=== PATIENT | female | born 1970 | race Asian ===

== ENCOUNTER 2016-05-15 20:05 | Emergency (ER) | payer OTHER ==
--- NOTE | 2016-05-15 20:29 | ER Document Report ---
ED Medical Screen (RME) - General Stated Complaint: LEFT WRIST PAIN Notes: Left wrist pain after straining to open a jar she felt that straining during the maneuver. I greeted and performed a rapid initial assessment of this patient. Comprehensive ED assessment and evaluation of the patient, analysis of test results and completion of the medical decision making process will be conducted by additional ED providers. TRAVEL OUTSIDE OF THE [place] IN LAST 30 DAYS: No - Related Data Allergies/Adverse Reactions: codeine [Codeine] Allergy (Severe, Verified 08/06/10 11:23) rash Past Medical History - Past Medical History Cardiac Medical History: Denies: Hx Coronary Artery Disease, Hx Heart Attack, Hx Hypertension Pulmonary Medical History: Denies: Hx Asthma, Hx Bronchitis, Hx COPD, Hx Pneumonia Neurological Medical History: Denies: Hx Cerebrovascular Accident, Hx Seizures GI Medical History: Musculoskeltal Medical History: Denies Hx Arthritis Infectious Medical History: Past Surgical History: Reports: Hx Section, Hx Hysterectomy. Denies: Hx Pacemaker - Immunizations Hx Diphtheria, Pertussis, Tetanus Vaccination: Yes Physical Exam - Vital signs Vitals: Temp Resp BP Pulse Ox 98.2 F 18 219/109 H 98 05/15/16 20:14 05/15/16 20:14 05/15/16 20:14 05/15/16 20:14 Course - Vital Signs Vital signs: Temp Pulse Resp BP Pulse Ox 98.2 F 18 219/109 H 98 05/15/16 20:14 05/15/16 20:14 05/15/16 20:14 05/15/16 20:14
[2016-05-15] MEDS ORDERED: IBUPROFEN 800 MG TABLET PO ONE (21:12)
--- NOTE | 2016-05-15 21:36 | ER Document Report ---
HPI - HPI Patient complains to provider of: left wrist pain Pain Level: 2 Context: Patient is a 45-year-old female presents emergency Department complaining of left wrist pain. Patient states that she was twisting open a jar this afternoon when she felt a sharp pain in her left thumb. She denies any other trauma or accidents. Just states that today she was helping her dad around the house that she felt pain in the similar area. She states it is worse with thumb extension versus flexion. Otherwise she is able to make a fist has full range of motion and does not eyes any numbness or tingling in her finger. - REPRODUCTIVE LMP: na Reproductive: DENIES: : - DERM Skin Color: Normal Past Medical History - General Information source: Patient - Social History Smoking Status: Current Every Day Smoker Chew tobacco use (# tins/day): No Frequency of alcohol use: Occasional Drug Abuse: None Family History: Reviewed & Not Pertinent Patient has suicidal ideation: No - Past Medical History Cardiac Medical History: Denies: Hx Coronary Artery Disease, Hx Heart Attack, Hx Hypertension Pulmonary Medical History: Denies: Hx Asthma, Hx Bronchitis, Hx COPD, Hx Pneumonia Neurological Medical History: Denies: Hx Cerebrovascular Accident, Hx Seizures Renal/ Medical History: Denies: Hx Peritoneal Dialysis GI Medical History: Musculoskeltal Medical History: Denies Hx Arthritis Infectious Medical History: Past Surgical History: Reports: Hx Section, Hx Hysterectomy. Denies: Hx Pacemaker - Immunizations Hx Diphtheria, Pertussis, Tetanus Vaccination: Yes Vertical Provider Document - CONSTITUTIONAL Agree With Documented VS: Yes - Repeat BP 178/96mmHg Exam Limitations: No Limitations General Appearance: WD/WN, No Apparent Distress - INFECTION CONTROL TRAVEL OUTSIDE OF THE [place] IN LAST 30 DAYS: No - HEENT HEENT: Atraumatic - RESPIRATORY O2 Sat by Pulse Oximetry: 98 - CARDIOVASCULAR Pulses: Normal: Radial Notes: Capillary refill less than 2 seconds in all upper extremity digits - MUSCULOSKELETAL/EXTREMETIES Musculoskeletal/Extremeties: MAEW, FROM, Tender - Tenderness to palpation at the base of the thumb metacarpal - NEURO Level of Consciousness: Awake, Alert, Appropriate Motor/Sensory: No Motor Deficit, No Sensory Deficit Course - Re-evaluation Re-evalutation: 05/15/16 21:39 Given patient had an injury during a motion of twisting likely has a strain of one of his thumb muscles. Indicated for Motrin and ice. No evidence of fracture on her x-ray. - Vital Signs Vital signs: Temp Pulse Resp BP Pulse Ox 98.2 F 18 219/109 H 98 05/15/16 20:14 05/15/16 20:14 05/15/16 20:14 05/15/16 20:14 - Diagnostic Test Radiology reviewed: Reports reviewed Discharge - Discharge Clinical Impression: Finger strain Condition: Good Disposition: HOME, SELF-CARE Instructions: Use of [id number]-Fyfmnza Ibuprofen ([facility]), Ice & Elevation ([facility]) Forms: Elevated Blood Pressure
[2016-05-15 22:33] VITALS: BP 178/98
== END 2016-05-15 22:31 | disposition home or self-care (01) ==
LOC: ER 20:05
DX: S63.602A Unspecified sprain of left thumb, initial encounter (principal); M25.532 Pain in left wrist; F17.200 Nicotine dependence, unspecified, uncomplicated; X58.XXXA Exposure to other specified factors, initial encounter; Z90.710 Acquired absence of both cervix and uterus
CPT/HCPCS: 99283

== ENCOUNTER 2016-07-18 19:37 | Emergency (ER) | payer OTHER ==
--- NOTE | 2016-07-18 19:51 | ER Document Report ---
ED Medical Screen (RME) - General Stated Complaint: HEADACHE,NAUSEA Notes: patient is a 45 year old female with headache, chills, body aches, nausea with vomiting, diarrhea since tuesday, denies sick contacts. denies any urinary symptoms I have greeted and performed a rapid initial assessment of this patient. A comprehensive ED assessment and evaluation of the patient, analysis of test results and completion of the medical decision making process will be conducted by additional ED providers. TRAVEL OUTSIDE OF THE [place] IN LAST 30 DAYS: No - Related Data Allergies/Adverse Reactions: codeine [Codeine] Allergy (Severe, Verified 08/06/10 11:23) rash Past Medical History - Past Medical History Cardiac Medical History: Denies: Hx Coronary Artery Disease, Hx Heart Attack, Hx Hypertension Pulmonary Medical History: Denies: Hx Asthma, Hx Bronchitis, Hx COPD, Hx Pneumonia Neurological Medical History: Denies: Hx Cerebrovascular Accident, Hx Seizures Renal/ Medical History: Denies: Hx Peritoneal Dialysis GI Medical History: Musculoskeltal Medical History: Denies Hx Arthritis Infectious Medical History: Past Surgical History: Reports: Hx Section, Hx Hysterectomy. Denies: Hx Pacemaker - Immunizations Hx Diphtheria, Pertussis, Tetanus Vaccination: Yes Physical Exam - Vital signs Vitals: Temp Pulse Resp BP Pulse Ox 97.5 F 69 16 180/95 H 96 07/18/16 19:42 07/18/16 19:42 07/18/16 19:42 07/18/16 19:42 07/18/16 19:42 Course - Vital Signs Vital signs: Temp Pulse Resp BP Pulse Ox 97.5 F 69 16 180/95 H 96 07/18/16 19:42 07/18/16 19:42 07/18/16 19:42 07/18/16 19:42 07/18/16 19:42
[2016-07-18] MEDS ORDERED: ONDANSETRON 4 MG TAB.RAPDIS PO ONE (19:54)
[2016-07-18] MEDS ORDERED: ACETAMINOPHEN 325 MG TABLET PO ONE (20:22)
[2016-07-18] MEDS ORDERED: KETOROLAC TROMETHAMINE 60 MG/2 ML SDV IM ONE (21:11)
--- NOTE | 2016-07-18 21:15 | ER Document Report ---
ED Headache - General Chief Complaint: Headache >24 hrs old Stated Complaint: HEADACHE,NAUSEA Notes: 45 yo female c/o headache, bodyaches, chills, n/v/d x 3 days. no fever. no hx/ o HTN but BP elevated today TRAVEL OUTSIDE OF THE [place] IN LAST 30 DAYS: No - HPI Patient complains to provider of: Headache Onset: Other - 3 days Timing: Still present Quality of pain: Achy Pain Level: 5 Associated symptoms: Chills, Nausea/vomiting. denies: Dizzy, Fever, Photophobia , Stiff neck Similar symptoms previously: No Recently seen / treated by doctor: No - Related Data Allergies/Adverse Reactions: codeine [Codeine] Allergy (Severe, Verified 07/18/16 19:52) rash Past Medical History - General Information source: Patient - Social History Smoking Status: Current Every Day Smoker Chew tobacco use (# tins/day): No Frequency of alcohol use: None Drug Abuse: None Lives with: Family Family History: Reviewed & Not Pertinent - Past Medical History Cardiac Medical History: Denies: Hx Coronary Artery Disease, Hx Heart Attack, Hx Hypertension Pulmonary Medical History: Denies: Hx Asthma, Hx Bronchitis, Hx COPD, Hx Pneumonia Neurological Medical History: Denies: Hx Cerebrovascular Accident, Hx Seizures Renal/ Medical History: Denies: Hx Peritoneal Dialysis GI Medical History: Musculoskeltal Medical History: Denies Hx Arthritis Infectious Medical History: Past Surgical History: Reports: Hx Section, Hx Hysterectomy. Denies: Hx Pacemaker - Immunizations Hx Diphtheria, Pertussis, Tetanus Vaccination: Yes Review of Systems - Review of Systems Constitutional: No symptoms reported EENT: No symptoms reported Cardiovascular: No symptoms reported Respiratory: No symptoms reported Gastrointestinal: Diarrhea, Nausea, Vomiting Genitourinary: No symptoms reported Female Genitourinary: No symptoms reported Musculoskeletal: No symptoms reported Skin: No symptoms reported Hematologic/Lymphatic: No symptoms reported Neurological/Psychological: No symptoms reported -: Yes All other systems reviewed and negative Physical Exam - Vital signs Vitals: Temp Pulse Resp BP Pulse Ox 97.5 F 69 16 180/95 H 96 07/18/16 19:42 07/18/16 19:42 07/18/16 19:42 07/18/16 19:42 07/18/16 19:42 Interpretation: Normal - General General appearance: Appears well, Alert - HEENT Head: Normocephalic, Atraumatic Eyes: Normal Conjunctiva: Normal Extraocular movements intact: Yes Pupils: PERRL Tympanic membrane: Normal Sinus: Normal Mucous membranes: Normal, Moist Pharynx: Normal Neck: Normal, Supple. No: Lymphadenopathy, Meningismus - Respiratory Respiratory status: No respiratory distress Chest status: Nontender Breath sounds: Normal Chest palpation: Normal - Cardiovascular Rhythm: Regular Heart sounds: Normal auscultation Murmur: No - Abdominal Inspection: Normal Distension: No distension Bowel sounds: Normal Tenderness: Nontender Organomegaly: No organomegaly - Back Back: Normal, Nontender - Extremities General upper extremity: Normal inspection, Nontender, Normal color, Normal ROM , Normal temperature General lower extremity: Normal inspection, Nontender, Normal color, Normal ROM , Normal temperature, Normal weight bearing. No: Orbin's sign - Neurological Neuro grossly intact: Yes Cognition: Normal Orientation: AAOx4 Lee Coma Scale Eye Opening: Spontaneous Lee Coma Scale Verbal: Oriented Lee Coma Scale Motor: Obeys Commands [place] Coma Scale Total: 15 Speech: Normal Motor strength normal: LUE, RUE, LLE, RLE Sensory: Normal - Psychological Associated symptoms: Normal affect, Normal mood - Skin Skin Temperature: Warm Skin Moisture: Dry Skin Color: Normal Course - Re-evaluation Re-evalutation: 07/18/16 21:14 pt evaluated. meds ordered. will continue to monitor 07/18/16 21:57 no neurologic deficits. 07/18/16 22:23 headache improving. BP improving. pt stable for discharge and follow up with primary care. pt agreeable with plan - Vital Signs Vital signs: Temp Pulse Resp BP Pulse Ox 98.3 F 76 20 168/63 H 100 07/18/16 22:10 07/18/16 22:10 07/18/16 22:10 07/18/16 22:10 07/18/16 22:10 Discharge - Discharge Clinical Impression: Viral syndrome Headache Qualifiers: Headache type: unspecified Headache chronicity pattern: acute headache Intractability: not intractable Qualified Code(s): R51 - Headache HTN (hypertension) Qualifiers: Hypertension type: essential hypertension Qualified Code(s): I10 - Essential ( primary) hypertension Condition: Stable Disposition: HOME, SELF-CARE Instructions: Viral Syndrome ([facility]), Antinausea Medication ([facility]), High Blood Pressure ([facility]) Additional Instructions: Meds as prescribed rest and hydrate follow up with your primary care if symptoms persist return to ER for any worsening your blood pressure was high today keep blood pressure diary please follow up with your primary care for further evaluation and treatment Prescriptions: Ondansetron HCl [Zofran 8 mg Tablet] 8 mg PO Q8HP PRN #10 tablet PRN Reason: Butalbital/Aspirin/Caffeine [Fiorinal 50-325-40 mg Capsule] 1 - 2 cap PO Q4 PRN #20 cap PRN Reason: Forms: Elevated Blood Pressure
[2016-07-18 22:11] VITALS: BP 168/63
[2016-07-18] MEDS ORDERED: HYDROCODONE/ACETAMINOPHEN 5-325 MG 6 TAB/DSPK PO PRN (22:32)
== END 2016-07-18 22:46 | disposition home or self-care (01) ==
LOC: ER 19:37
DX: R51 Headache (principal); B34.9 Viral infection, unspecified; R11.2 Nausea with vomiting, unspecified; I10 Essential (primary) hypertension; R68.83 Chills (without fever); F17.200 Nicotine dependence, unspecified, uncomplicated; Z88.6 Allergy status to analgesic agent
CPT/HCPCS: 99283; 96372; J1885; S0119

== ENCOUNTER 2017-01-20 12:17 | Emergency (ER) | payer OTHER ==
--- NOTE | 2017-01-20 13:20 | ER Document Report ---
HPI - HPI Pain Level: 4 Notes: Patient is a 46-year-old female who presents the ED complaining of right ear pain 2-3 days. Patient states that she did have nasal congestion discharge prior, but that those symptoms have since resolved. She has not used any over- the-counter meds for symptoms. She still eating and drinking without difficulties. The pain does not radiate. She has not noticed any discharge from her ear. Denies any drug allergies to antibiotics or significant past medical history otherwise. Denies any recent swimming. Denies any headache, fever, head injury, neck pain, changes in hearing, dizziness, tinnitus, fullness of ear, URI, sore throat, chest pain, palpitations, syncope, cough, shortness of breath, wheeze, dyspnea, abdominal pain, nausea/vomiting/diarrhea, or rash. - ROS Notes: REVIEW OF SYSTEMS: CONSTITUTIONAL : Denies fever, chills, or sweats. Denies recent illness. EENT: see hpi. No eye complaints. CARDIOVASCULAR: Denies chest pain. Denies palpitations or racing or irregular heart beat. Denies ankle edema. RESPIRATORY: Denies cough, cold, or chest congestion. Denies shortness of breath, difficulty breathing, or wheezing. GASTROINTESTINAL: Denies abdominal pain or distention. Denies nausea, vomiting , or diarrhea. Denies blood in vomitus, stools, or per rectum. Denies black, tarry stools. Denies constipation. GENITOURINARY: Denies difficulty urinating, painful urination, burning, frequency, blood in urine, or discharge. MUSCULOSKELETAL: Denies back or neck pain or stiffness. Denies joint pain or swelling. SKIN: Denies rash, lesions or sores. NEUROLOGICAL: Denies confusion or altered mental status. Denies passing out or loss of consciousness. Denies dizziness or lightheadedness. Denies headache. Denies weakness or paralysis or loss of use of either side. Denies problems with gait or speech. Denies sensory loss, numbness, or tingling. ALL OTHER SYSTEMS REVIEWED AND NEGATIVE. Dictation was performed using [employer] voice recognition software - CARDIOVASCULAR Cardiovascular: DENIES: Chest pain - REPRODUCTIVE Reproductive: DENIES: : - DERM Skin Color: Normal Past Medical History - Social History Smoking Status: Current Every Day Smoker Chew tobacco use (# tins/day): No Frequency of alcohol use: None Drug Abuse: None Family History: Reviewed & Not Pertinent Patient has suicidal ideation: No Patient has homicidal ideation: No - Past Medical History Cardiac Medical History: Denies: Hx Coronary Artery Disease, Hx Heart Attack, Hx Hypertension Pulmonary Medical History: Denies: Hx Asthma, Hx Bronchitis, Hx COPD, Hx Pneumonia Neurological Medical History: Denies: Hx Cerebrovascular Accident, Hx Seizures Renal/ Medical History: Denies: Hx Peritoneal Dialysis GI Medical History: Musculoskeltal Medical History: Denies Hx Arthritis Infectious Medical History: Past Surgical History: Reports: Hx Section, Hx Hysterectomy. Denies: Hx Pacemaker - Immunizations Hx Diphtheria, Pertussis, Tetanus Vaccination: Yes Vertical Provider Document - CONSTITUTIONAL Agree With Documented VS: Yes Notes: PHYSICAL EXAMINATION: GENERAL: Well-appearing, well-nourished and in no acute distress. HEAD: Atraumatic, normocephalic. EYES: Pupils equal round and reactive to light, extraocular movements intact, sclera anicteric, conjunctiva are normal. ENT: EAC clear b/l. + erythema to the rt EAC with tenderness to tragus and EAC. TM's intact b/l without erythema, fluid, or perforation. Nares patent and without discharge. oropharynx clear without exudates. No tonsilar hypertrophy or erythema. Moist mucous membranes. No sinus tenderness. Uvula midline. No palatine shift. No tongue protrusion. No respiratory compromise. NECK: Normal range of motion, supple without lymphadenopathy. No rigidity/ meningismus. LUNGS: Breath sounds clear to auscultation bilaterally and equal. No wheezes rales or rhonchi. HEART: Regular rate and rhythm without murmurs, rubs, gallops. NEUROLOGICAL: Cranial nerves grossly intact. Normal speech, normal gait. Normal sensory, motor exams PSYCH: Normal mood, normal affect. SKIN: Warm, Dry, normal turgor, no rashes or lesions noted. - INFECTION CONTROL TRAVEL OUTSIDE OF THE [place] IN LAST 30 DAYS: No - RESPIRATORY O2 Sat by Pulse Oximetry: 97 Course - Re-evaluation Re-evalutation: 01/20/17 13:17 Patient is an afebrile, well-hydrated, 46-year-old female who presents to the ED with acute right otitis sterna. Vitals are stable. PE otherwise unremarkable. Low suspicion/risk for any mastoiditis, TM rupture, acute glaucoma, temporal arteritis, meningitis, intracranial hemorrhage, ischemic stroke, or fracture at this time. Patient is aware that her condition can change from initial presentation and that she needs to monitor symptoms closely for any acute changes. I will send her home with a prescription for Ciprodex drops to apply as directed. Conservative measures for symptoms. Recheck with her PCM in 1 week. Consider consult with ENT for ongoing/worsening symptoms. Return to the ED with any worsening/concerning symptoms otherwise as reviewed in discharge. Patient is in agreement. - Vital Signs Vital signs: Temp Pulse Resp BP Pulse Ox 98.8 F 95 20 97 01/20/17 12:34 01/20/17 12:34 01/20/17 12:34 01/20/17 12:34 Discharge - Discharge Clinical Impression: Otitis externa Qualifiers: Otitis externa type: unspecified type Chronicity: acute Laterality: right Qualified Code(s): H60.501 - Unspecified acute noninfective otitis externa, right ear Condition: Stable Disposition: HOME, SELF-CARE Instructions: Use of Ear Drops ([facility]), Otitis Externa ([facility]) Additional Instructions: Tylenol/ibuprofen as needed Use drops as directed Avoid use of Q-tips in ear Avoid swimming or submerging underwater Monitor for any worsening symptoms Recheck with your PCM in 1 week Consider consult with ENT for ongoing/worsening symptoms Return to the ED with any worsening symptoms and/or development of fever, headache, tinnitus, dizziness, ear discharge, chest pain, palpitations, syncope , shortness of breath, trouble breathing, abdominal pain, n/v/d, blood in stool/ urine, loss of control of bowel/bladder, or other worsening symptoms that are concerning to you. Prescriptions: Ciprofloxacin HCl/Dexameth [Ciprodex Otic Suspension 7.5 ml Bottle] 4 drop OT BID #1 bottle Referrals: AMAYA HERRERA MD [Primary Care Provider] - Follow up in 1 week
== END 2017-01-20 13:24 | disposition home or self-care (01) ==
LOC: ER 12:17
DX: H60.501 Unspecified acute noninfective otitis externa, right ear (principal); F17.200 Nicotine dependence, unspecified, uncomplicated
CPT/HCPCS: 99282

== ENCOUNTER 2017-05-28 14:15 | Observation (INO) | payer OTHER ==
[2017-05-28] MEDS ORDERED: CLONIDINE HCL 0.1 MG TABLET PO ONE ×2 (14:48→16:11)
--- NOTE | 2017-05-28 14:49 | ER Document Report ---
ED General - General Chief Complaint: Nausea/Vomiting/Diarrhea Stated Complaint: NAUSEA Time Seen by Provider: 05/28/17 14:45 Notes: Trixy i female of [place] descent s a 46-year-old with history of recent headaches. Also having some nausea with diarrhea. Thinks that she may have the flu. Does not have a regular doctor. States that she was on some medication for blood pressure but ran out a long time ago. Any chest pain or shortness of breath. Denies any fever, chills, sweats. The headache patient is complaining of is located at the occiput. TRAVEL OUTSIDE OF THE [place] IN LAST 30 DAYS: No - HPI Onset/Duration: Gradual Quality of pain: Pressure Severity: Moderate Pain Level: 3 Associated symptoms: None, Diarrhea, Nausea - Related Data Allergies/Adverse Reactions: codeine [Codeine] Allergy (Severe, Verified 05/28/17 14:16) rash Past Medical History - General Information source: Patient - Social History Smoking Status: Former Smoker Frequency of alcohol use: None Drug Abuse: None Lives with: Family Family History: DM, Hypertension - Past Medical History Cardiac Medical History: Denies: Hx Coronary Artery Disease, Hx Heart Attack, Hx Hypertension Pulmonary Medical History: Denies: Hx Asthma, Hx Bronchitis, Hx COPD, Hx Pneumonia Neurological Medical History: Denies: Hx Cerebrovascular Accident, Hx Seizures Renal/ Medical History: Denies: Hx Peritoneal Dialysis GI Medical History: Musculoskeltal Medical History: Denies Hx Arthritis Infectious Medical History: Past Surgical History: Reports: Hx Section, Hx Hysterectomy. Denies: Hx Pacemaker - Immunizations Hx Diphtheria, Pertussis, Tetanus Vaccination: Yes Review of Systems - Review of Systems Constitutional: denies: Fever, Malaise, Weakness EENT: denies: Eye pain, Blurred vision, Tearing, Mouth swelling Cardiovascular: denies: Chest pain, Palpitations, Heart racing Gastrointestinal: Diarrhea. denies: Nausea, Vomiting Genitourinary: denies: Burning, Dysuria, Discharge Musculoskeletal: denies: Back pain, Gout, Joint pain Skin: denies: Dryness, Lesions, Rash Hematologic/Lymphatic: denies: Blood clots, Easy bleeding, Easy bruising Neurological/Psychological: Headaches. denies: Speech impairment, Numbness, Tingling, Tremor Physical Exam - Vital signs Vitals: Temp Pulse Resp BP Pulse Ox 98.2 F 93 20 194/122 H 97 05/28/17 14:27 05/28/17 14:27 05/28/17 14:27 05/28/17 14:27 05/28/17 14:27 Interpretation: Normal - General General appearance: Appears well, Alert - HEENT Head: Normocephalic, Atraumatic Eyes: Normal Pupils: PERRL - Respiratory Respiratory status: No respiratory distress Chest status: Nontender Breath sounds: Normal Chest palpation: Normal - Cardiovascular Rhythm: Regular Heart sounds: Normal auscultation Murmur: No - Abdominal Inspection: Normal Distension: No distension Bowel sounds: Normal Tenderness: Nontender Organomegaly: No organomegaly - Back Back: Normal, Nontender - Extremities General upper extremity: Normal inspection, Nontender, Normal color, Normal ROM , Normal temperature General lower extremity: Normal inspection, Nontender, Normal color, Normal ROM , Normal temperature, Normal weight bearing. No: Robin's sign - Neurological Neuro grossly intact: Yes Cognition: Normal Orientation: AAOx4 Lee Coma Scale Eye Opening: Spontaneous Lee Coma Scale Verbal: Oriented Lee Coma Scale Motor: Obeys Commands [place] Coma Scale Total: 15 Speech: Normal Motor strength normal: LUE, RUE, LLE, RLE Sensory: Normal - Psychological Associated symptoms: Normal affect, Normal mood - Skin Skin Temperature: Warm Skin Moisture: Dry Skin Color: Normal Course - Re-evaluation Re-evalutation: 05/28/17 17:37 Labs unremarkable. Patient's blood pressure still elevated after 2 doses of clonidine, losartan as well as HCTZ. [place] uncomfortable dropping her pressure any quicker. At this time will call the hospitalist for admission so that she can get the workup that she needs. Patient is comfortable with this plan. Still has a headache. Repeat neurological exam unremarkable. Patient is alert and in no acute distress. We will give her some Toradol at this time for her headache. - Vital Signs Vital signs: Temp Pulse Resp BP Pulse Ox 98.2 F 93 16 184/116 H 96 05/28/17 14:27 05/28/17 14:27 05/28/17 17:16 05/28/17 17:16 05/28/17 17:16 - Laboratory Result Diagrams: 05/28/17 14:45 05/28/17 14:45 Laboratory results interpreted by me: 05/28/17 05/28/17 14:45 15:05 RBC 5.42 H Hgb 16.0 H Hct 47.2 H Urine Blood SMALL H Critical Care Note - Critical Care Note Total time excluding time spent on procedures (mins): 45 Comments: Hypertension Discharge - Discharge Clinical Impression: Hypertensive urgency Condition: Good Disposition: ADMITTED OBSERVATION Admitting Provider: Hospitalist Unit Admitted: Telemetry - [facility] Referrals: AMAYA HERRERA MD [Primary Care Provider] - Follow up as needed
[2017-05-28 15:16] LABS: ABSOLUTE BASOPHILS # (AUTO) 0.1 10^3/uL (0.0-0.2); ABSOLUTE EOSINOPHILS # (AUTO) 0.3 10^3/uL (0.0-0.6); ABSOLUTE LYMPHOCYTES (AUTO) 2.1 10^3/uL (0.5-4.7); ABSOLUTE MONOCYTES (AUTO) 0.5 10^3/uL (0.1-1.4); ABSOLUTE NEUT (AUTO) 5.2 10^3/uL (1.7-8.2); BASOPHILS % (AUTO) 0.6 % (0-2); EOSINOPHILS % (AUTO) 3.3 % (0-6); HEMATOCRIT 47.2 % (36.0-47.0); LYMPHOCYTES % (AUTO) 25.6 % (13-45); MEAN CORPUSCULAR HEMOGLOBIN 29.5 pg (27.0-33.4); MEAN CORPUSCULAR HGB CONC 33.9 g/dL (32.0-36.0); MEAN CORPUSCULAR VOLUME 87 fl (80-97); MONOCYTES % (AUTO) 6.4 % (3-13); PLATELET COUNT 335 10^3/uL (150-450); RED BLOOD COUNT 5.42 10^6/uL (3.72-5.28); RED CELL DISTRIBUTION WIDTH 12.9 % (11.5-14.0); SEGMENTED NEUTROPHILS % (AUTO) 64.1 % (42-78); TOTAL CELLS COUNTED % (AUTO) 100 %; WHITE BLOOD COUNT 8.1 10^3/uL (4.0-10.5)
[2017-05-28 15:29] LABS: ALANINE AMINOTRANSFERASE 28 U/L (9-52); ALBUMIN 4.5 g/dL (3.5-5.0); ALKALINE PHOSPHATASE 109 U/L (38-126); ANION GAP 12 (5-19); ASPARTATE AMINO TRANSFERASE 19 U/L (14-36); BILIRUBIN,DIRECT 0.3 mg/dL (0.0-0.4); BILIRUBIN,TOTAL 0.3 mg/dL (0.2-1.3); BLOOD UREA NITROGEN 10 mg/dL (7-20); CALCIUM 9.3 mg/dL (8.4-10.2); CARBON DIOXIDE 25 mmol/L (22-30); CHLORIDE 105 mmol/L (98-107); GLUCOSE 94 mg/dL (75-110); POTASSIUM 3.9 mmol/L (3.6-5.0); SODIUM 142.1 mmol/L (137-145); TOTAL PROTEIN 7.4 g/dL (6.3-8.2)
[2017-05-28 15:39] LABS: APPEARANCE,URINE CLEAR; BILIRUBIN,URINE NEGATIVE (NEGATIVE); COLOR,URINE YELLOW; GLUCOSE, URINE NEGATIVE (NEGATIVE); KETONES,URINE NEGATIVE (NEGATIVE); LEUKOCYTE ESTERASE,URINE NEGATIVE (NEGATIVE); NITRITE,URINE NEGATIVE (NEGATIVE); PROTEIN,URINE NEGATIVE (NEGATIVE); URINE SPECIFIC GRAVITY 1.011; UROBILINOGEN,URINE NEGATIVE mg/dL (<2.0)
[2017-05-28 15:44] LABS: FREE T4 (FREE THYROXINE) 1.25 ng/dL (0.78-2.19)
[2017-05-28 15:51] LABS: A TYPE INFLUENZA AG NEGATIVE (NEGATIVE); B INFLUENZA AG NEGATIVE (NEGATIVE)
[2017-05-28 15:58] LABS: THYROID STIMULATING HORMONE 1.63 uIU/mL (0.47-4.68)
[2017-05-28 16:08] LABS: URINE AMPHETAMINES SCREEN NEGATIVE; URINE BARBITURATES SCREEN NEGATIVE; URINE BENZODIAZEPINES SCREEN NEGATIVE; URINE COCAINE SCREEN NEGATIVE; URINE MARIJUANA (THC) SCREEN NEGATIVE; URINE METHADONE SCREEN NEGATIVE; URINE PHENCYCLIDINE SCREEN NEGATIVE
[2017-05-28] MEDS ORDERED: HYDROCHLOROTHIAZIDE 25 MG TABLET PO ONE (16:11)
[2017-05-28] MEDS ORDERED: LOSARTAN POTASSIUM 25 MG TABLET PO ONE (16:11)
--- NOTE | 2017-05-28 16:41 | RADIOLOGY REPORT (SQ) ---
EXAM DESCRIPTION: CT HEAD WITHOUT COMPLETED DATE/TIME: 05/28/2017 4:25 pm REASON FOR STUDY: Severe hypertension with headache COMPARISON: None. TECHNIQUE: Axial images acquired through the brain without intravenous contrast. Images reviewed wi th bone, brain and subdural windows. Images stored on PACS. All CT scanners at this facility use dose modulation, iterative reconstruction, and/or weight based d osing when appropriate to reduce radiation dose to as low as reasonably achievable (ALARA). [facility]: Dose Right [facility]: CareDose [facility]: Dose Right [facility]: Teradose 4D [facility]: Smart [employer] Software RADIATION DOSE: CT Rad equipment meets quality standard of care and radiation dose reduction techniq ues were employed. CTDIvol: 64.6 mGy. DLP: 1163 mGy-cm. mGy. LIMITATIONS: None. FINDINGS: VENTRICLES: Normal size and contour. CEREBRUM: No masses. No hemorrhage. No midline shift. No evidence for acute infarction. Normal gra y/white matter differentiation. No areas of low density in the white matter. CEREBELLUM: No masses. No hemorrhage. No alteration of density. No evidence for acute infarction. EXTRAAXIAL SPACES: No fluid collections. No masses. ORBITS AND GLOBE: No intra- or extraconal masses. Normal contour of globe without masses. CALVARIUM: No fracture. PARANASAL SINUSES: No fluid levels or significant mucosal thickening. SOFT TISSUES: No mass or hematoma. OTHER: No other significant finding. IMPRESSION: NORMAL BRAIN CT WITHOUT CONTRAST. EVIDENCE OF ACUTE STROKE: NO. COMMENT: Quality ID # [id number]: Final reports with documentation of one or more dose reduction techniques (e.g., Automated exposure control, adjustment of the mA and/or kV according to patient size, use of iterative reconstruction technique) TECHNICAL DOCUMENTATION: JOB ID: [id number]- All Rights Reserved
[2017-05-28] MEDS ORDERED: KETOROLAC TROMETHAMINE INJ/PF 30 MG/1 ML SDV IV ONE (17:33)
[2017-05-28] MEDS ORDERED: NORMAL SALINE 1000 ML 1,000 ML IV PRN (17:38)
[2017-05-28] MEDS ORDERED: ZOLPIDEM TARTRATE 5 MG TABLET PO PRN (17:38)
[2017-05-28] MEDS ORDERED: ONDANSETRON HCL INJ/PF 4 MG/2 ML SDV IV PRN (17:38)
[2017-05-28] MEDS ORDERED: ACETAMINOPHEN 325 MG TABLET PO PRN (17:38)
[2017-05-28] MEDS ORDERED: OXYCODONE-ACETAMINOPHEN 5-325 MG TABLET PO PRN (17:38)
[2017-05-28] MEDS ORDERED: HYDRALAZINE HCL INJ/PF 20 MG/1 ML SDV IV PRN (17:45)
[2017-05-28] MEDS ORDERED: NIFEDIPINE 30 MG TAB.ER.24 PO SCH (18:00)
--- NOTE | 2017-05-28 18:38 | PDOC H&P ---
History of Present Illness Admission Date/PCP: 05/28/17 17:59 AMAYA HERRERA MD Patient complains of: Not feeling good for a couple of days History of Present Illness: JENNIFER BENAVIDEZ is a 46 year old female presents to emergency room because she had been having muscle aches, diarrhea and weakness for a couple of days. Her sister advised her to come to emergency room to see if she had the flu. Patient admits that she suffers from daily headaches for several weeks. The headaches are no worse. She denied any visual problems. She had been having some diarrhea which is accompanied by slight nausea. She admits that once she was told that she had high blood pressure when she came to emergency room. She was prescribed at that time blood pressure medication but she has not taken any medications in a good amount of time. When patient was initially admitted to emergency room the blood pressure was 206/120. Patient had been since then medicated with clonidine, HCTZ and losartan with some improvement. Since still suboptimal our service was contacted and prompted to admit for further management Past Medical History Cardiac Medical History: Reports: Hypertension Denies: Coronary Artery Disease, Myocardial Infarction Pulmonary Medical History: Denies: Asthma, Bronchitis, Chronic Obstructive Pulmonary Disease (COPD), Pneumonia EENT Medical History: Reports: None Neurological Medical History: Reports: None Denies: Seizures Endocrine Medical History: Reports: None Renal/ Medical History: Reports: None Malignancy Medical History: Reports: None GI Medical History: Reports: None Musculoskeltal Medical History: Reports: None Denies: Arthritis Skin Medical History: Reports: None Psychiatric Medical History: Reports: Tobacco Dependency Traumatic Medical History: Reports: None Hematology: Reports: None Denies: Anemia Infectious Medical History: Reports: None Past Surgical History Past Surgical History: Reports: Section, Hysterectomy Denies: Pacemaker Social History Information Source: Patient Lives with: Family Smoking Status: Current Every Day Smoker Cigars Per Day: 5 Frequency of Alcohol Use: None Hx Recreational Drug Use: Yes Drugs: None Hx Prescription Drug Abuse: No - Advance Directive Resuscitation Status: Full Code Family History Family History: DM, Hypertension Parental Family History Reviewed: No Children Family History Reviewed: No Sibling(s) Family History Reviewed.: No Medication/Allergy Home Medications: Albuterol Sulfate [Proair HFA Inhalation Aerosol 8.5 gm MDI] 1 puff IH Q4H PRN # 1 mdi 11/08/11 Hydrocodone/Acetaminophen [Hydrocodon-Acetaminophen 5-325] 1 each PO Q6 #20 tablet 01/11/16 Butalbital/Aspirin/Caffeine [Fiorinal 50-325-40 mg Capsule] 1 - 2 cap PO Q4 PRN #20 cap 07/18/16 Ondansetron HCl [Zofran 8 mg Tablet] 8 mg PO Q8HP PRN #10 tablet 07/18/16 Ciprofloxacin HCl/Dexameth [Ciprodex Otic Suspension 7.5 ml Bottle] 4 drop OT BID #1 bottle 01/20/17 Allergies/Adverse Reactions: codeine [Codeine] Allergy (Severe, Verified 05/28/17 14:16) rash Review of Systems Constitutional: PRESENT: headache(s). ABSENT: fever(s), weakness Ears: ABSENT: hearing changes Nose, Mouth, and Throat: PRESENT: headache(s). ABSENT: mouth pain, sore throat Cardiovascular: ABSENT: chest pain, dyspnea on exertion, edema, palpitations Respiratory: ABSENT: cough, dyspnea Gastrointestinal: PRESENT: abdominal pain, diarrhea, nausea Genitourinary: ABSENT: dysuria, hematuria Musculoskeletal: ABSENT: joint swelling Neurological: PRESENT: weakness Psychiatric: ABSENT: depression Endocrine: ABSENT: heat intolerance Physical Exam Vital Signs: Temp Pulse Resp BP Pulse Ox 98.2 F 93 16 184/116 H 96 05/28/17 14:27 05/28/17 14:27 05/28/17 17:16 05/28/17 17:16 05/28/17 17:16 General appearance: PRESENT: no acute distress, morbidly obese Head exam: PRESENT: atraumatic, normocephalic Eye exam: PRESENT: conjunctival injection, conjunctiva pink, EOMI, PERRLA Ear exam: PRESENT: normal external ear exam Mouth exam: PRESENT: moist, neck supple Neck exam: PRESENT: full ROM. ABSENT: JVD, lymphadenopathy, tenderness Respiratory exam: PRESENT: clear to auscultation renan Cardiovascular exam: PRESENT: RRR. ABSENT: diastolic murmur, systolic murmur Pulses: PRESENT: normal carotid pulses, normal dorsalis pedis pul Vascular exam: PRESENT: normal capillary refill GI/Abdominal exam: PRESENT: normal bowel sounds, soft. ABSENT: tenderness Rectal exam: PRESENT: deferred Extremities exam: PRESENT: full ROM. ABSENT: clubbing, joint swelling, pedal edema Musculoskeletal exam: PRESENT: ambulatory, full ROM Neurological exam: PRESENT: alert, awake, oriented to person, oriented to place , oriented to time, oriented to situation, CN II-XII grossly intact Psychiatric exam: PRESENT: appropriate affect, normal mood Skin exam: PRESENT: intact, normal color Results Impressions: Head CT 05/28/17 16:10 IMPRESSION: NORMAL BRAIN CT WITHOUT CONTRAST. EVIDENCE OF ACUTE STROKE: NO. Assessment & Plan - Diagnosis (1) Viral syndrome Is this a current diagnosis for this admission?: Yes Plan: Supportive. Order lactobacillus (2) Hypertensive urgency Is this a current diagnosis for this admission?: Yes Plan: After history gathering patient has been having headache for several weeks. Will place patient on Procardia XL 60 mg daily, HCTZ 25 mg p.o. daily and lisinopril 20 mg p.o. daily will order hydralazine IV for rescue. Patient made aware of dangers of not complying with medications for blood pressure since high blood pressures since high blood pressure is a slient killer (3) Morbid obesity with BMI of 45.0-49.9, adult Is this a current diagnosis for this admission?: Yes Plan: Patient advised to lose weight and to lifestyle modifications including exercise (4) Tobacco dependence Is this a current diagnosis for this admission?: Yes Plan: Educated about quitting. Made aware of dangers of worsening blood pressure, heart attack, stroke, COPD, lung cancer - Time Time Spent: 50 to 70 Minutes Medications reviewed and adjusted accordingly: Yes Anticipated discharge: Home Within: within 24 hours - Inpatient Certification I certify that my determination is in accordance with my understanding of Medicare's requirements for reasonable and necessary INPATIENT services [42 CFR 412.3e].: No Medical Necessity: Need Close Monitoring Due to Risk of Patient Decompensation
[2017-05-29 05:56] LABS: ABSOLUTE BASOPHILS # (AUTO) 0.1 10^3/uL (0.0-0.2); ABSOLUTE EOSINOPHILS # (AUTO) 0.4 10^3/uL (0.0-0.6); ABSOLUTE LYMPHOCYTES (AUTO) 2.6 10^3/uL (0.5-4.7); ABSOLUTE MONOCYTES (AUTO) 0.8 10^3/uL (0.1-1.4); ABSOLUTE NEUT (AUTO) 6.4 10^3/uL (1.7-8.2); BASOPHILS % (AUTO) 0.7 % (0-2); EOSINOPHILS % (AUTO) 3.9 % (0-6); HEMOGLOBIN 14.9 g/dL (12.0-15.5); LYMPHOCYTES % (AUTO) 25.4 % (13-45); MEAN CORPUSCULAR HEMOGLOBIN 29.4 pg (27.0-33.4); MEAN CORPUSCULAR HGB CONC 33.8 g/dL (32.0-36.0); MEAN CORPUSCULAR VOLUME 87 fl (80-97); PLATELET COUNT 302 10^3/uL (150-450); RED BLOOD COUNT 5.06 10^6/uL (3.72-5.28); RED CELL DISTRIBUTION WIDTH 13.4 % (11.5-14.0); TOTAL CELLS COUNTED % (AUTO) 100 %; WHITE BLOOD COUNT 10.3 10^3/uL (4.0-10.5)
[2017-05-29 06:31] LABS: ANION GAP 8 (5-19); BLOOD UREA NITROGEN 14 mg/dL (7-20); CALCIUM 9.3 mg/dL (8.4-10.2); CARBON DIOXIDE 26 mmol/L (22-30); CHLORIDE 102 mmol/L (98-107); GLUCOSE 90 mg/dL (75-110); MAGNESIUM 1.8 mg/dL (1.6-2.3); POTASSIUM 3.4 mmol/L (3.6-5.0); SODIUM 135.7 mmol/L (137-145)
[2017-05-29] MEDS ORDERED: POTASSIUM CHLORIDE 10 MEQ TABLET.SA PO ONE (09:00)
[2017-05-29 09:14] VITALS: BP 148/79
[2017-05-29] MEDS ORDERED: LACTOBACILLUS ACIDOPHILUS 250 MG TAB PO SCH (10:00)
[2017-05-29] MEDS ORDERED: HYDROCHLOROTHIAZIDE 25 MG TABLET PO SCH (10:00)
[2017-05-29] MEDS ORDERED: LISINOPRIL 10 MG TABLET PO SCH (10:00)
[2017-05-29] MEDS ORDERED: DOCUSATE SODIUM 100 MG CAPSULE PO SCH (10:00)
--- NOTE | 2017-05-29 10:54 | PDOC DISCHARGE SUMMARY ---
General - Admit/Disc Date/PCP Admission Date/Primary Care Provider: 05/28/17 17:59 AMAYA HERRERA MD Discharge Date: 05/29/17 - Discharge Diagnosis (1) Viral syndrome Is this a current diagnosis for this admission?: Yes (2) Hypertensive urgency Is this a current diagnosis for this admission?: Yes (3) Morbid obesity with BMI of 45.0-49.9, adult Is this a current diagnosis for this admission?: Yes (4) Tobacco dependence Is this a current diagnosis for this admission?: Yes (5) Hypokalemia Is this a current diagnosis for this admission?: Yes - Additional Information Resuscitation Status: Full Code Discharge Diet: Cardiac Discharge Activity: Activity As Tolerated History of Present Illness History of Present Illness: JENNIFER BENAVIDEZ is a 46 year old female presented to emergency room because she had been having muscle aches, diarrhea and weakness for a couple of days. Her sister advised her to come to emergency room to see if she had the flu. Patient reported that she suffers from daily headaches for several weeks. The headaches were no worse. She denied any visual problems. She had been having some diarrhea whichwas accompanied by slight nausea. She admits that once she was told that she had high blood pressure when she came to emergency room. She was prescribed at that time blood pressure medication but she has not taken any medications in a good amount of time. When patient was initially admitted to emergency room the blood pressure was 206/120. Patient was medicated with clonidine, HCTZ and losartan with some improvement. Since still suboptimal our service was contacted and prompted to admit for further management Hospital Course Hospital Course: Patient was admitted to telemetry unit and remained stable from the cardiac standpoint of view. Blood pressure was improved and will continue current in- house regimen. Patient has been advised as to follow-up with her primary care provider as her blood pressure medications may need some adjustment. She complained of some cough on the day of discharge will add an antitussive to her discharge medications.Patient has been discharged home on Procardia XL 60 mg p.o. daily and lisinopril 10 mg p.o. daily. Potassium required supplementation prior to discharge. Patient has been advised as to follow-up lifestyle modification that is lose weight and exercise. Since patient had achieved maximum benefit of hospitalization stay prompted to discharge under stable condition Physical Exam Vital Signs: Temp Pulse Resp BP Pulse Ox 97.7 F 69 18 120/63 98 05/29/17 04:52 05/29/17 04:52 05/29/17 04:52 05/29/17 04:52 05/29/17 04:52 Intake & Output 05/28/17 05/29/17 05/30/17 06:59 06:59 06:59 Intake Total 360 Output Total 600 Balance -240 Weight 103.8 kg General appearance: PRESENT: no acute distress, cooperative, morbidly obese Head exam: PRESENT: atraumatic, normocephalic Eye exam: PRESENT: EOMI, PERRLA Ear exam: PRESENT: normal external ear exam, TM's normal bilaterally Mouth exam: PRESENT: moist, neck supple Neck exam: PRESENT: full ROM. ABSENT: JVD, lymphadenopathy, tenderness Respiratory exam: PRESENT: clear to auscultation renan Cardiovascular exam: PRESENT: RRR. ABSENT: diastolic murmur, systolic murmur Vascular exam: PRESENT: normal capillary refill GI/Abdominal exam: PRESENT: normal bowel sounds, soft. ABSENT: tenderness Extremities exam: PRESENT: full ROM. ABSENT: joint swelling, pedal edema Musculoskeletal exam: PRESENT: ambulatory, full ROM Neurological exam: PRESENT: alert, awake, oriented to person, oriented to place , oriented to time, oriented to situation, CN II-XII grossly intact Psychiatric exam: PRESENT: appropriate affect, normal mood Skin exam: PRESENT: intact, normal color Results Laboratory Results: 05/29/17 05:28 05/29/17 05:28 05/29/17 05/29/17 05:28 05:28 WBC 10.3 RBC 5.06 Hgb 14.9 Hct 44.0 MCV 87 MCH 29.4 MCHC 33.8 RDW 13.4 Plt Count 302 Seg Neutrophils % 62.0 Lymphocytes % 25.4 Monocytes % 8.0 Eosinophils % 3.9 Basophils % 0.7 Absolute Neutrophils 6.4 Absolute Lymphocytes 2.6 Absolute Monocytes 0.8 Absolute Eosinophils 0.4 Absolute Basophils 0.1 Sodium 135.7 L Potassium 3.4 L Chloride 102 Carbon Dioxide 26 Anion Gap 8 BUN 14 Creatinine 1.02 Est GFR ( Amer) > 60 Est GFR (Non-Af Amer) 59 L Glucose 90 Calcium 9.3 Magnesium 1.8 05/28/17 05/29/17 19:11 00:35 Troponin I < 0.012 < 0.012 Impressions: Head CT 05/28/17 16:10 IMPRESSION: NORMAL BRAIN CT WITHOUT CONTRAST. EVIDENCE OF ACUTE STROKE: NO. Plan Discharge Plan: Discharge home. Time Spent: Less than 30 Minutes
--- NOTE | 2017-05-29 12:00 | EKG REPORT ---
SEVERITY:- NORMAL ECG - SINUS RHYTHM : Confirmed by: Carlyn Stubbs MD 29-May-2017 12:00:01
--- NOTE | 2017-06-02 08:30 | EKG REPORT ---
SEVERITY:- NORMAL ECG - SINUS RHYTHM : Confirmed on behalf of: Pete Barcenas MD 02-Jun-2017 08:30:07
--- NOTE | 2017-06-02 08:35 | EKG REPORT ---
SEVERITY:- NORMAL ECG - SINUS RHYTHM : Confirmed on behalf of: Pete Barcenas MD 02-Jun-2017 08:35:39
--- NOTE | 2017-06-02 12:23 | EKG REPORT ---
SEVERITY:- NORMAL ECG - SINUS RHYTHM : Confirmed on behalf of: Pete Barcenas MD 02-Jun-2017 12:23:18
== END 2017-05-29 09:00 | disposition home or self-care (01) ==
LOC: ER 14:15 → EH 17:59 → 4S 23:23
PROVIDERS: ADMIT Emergency Medicine; ATTEND Emergency Medicine
DX: B34.9 Viral infection, unspecified (principal); I16.0 Hypertensive urgency; E66.01 Morbid (severe) obesity due to excess calories; F17.200 Nicotine dependence, unspecified, uncomplicated; E87.6 Hypokalemia; R19.7 Diarrhea, unspecified; R11.0 Nausea; F17.210 Nicotine dependence, cigarettes, uncomplicated; R10.9 Unspecified abdominal pain; R51 Headache; Z68.35 Body mass index [BMI] 35.0-35.9, adult; Z90.710 Acquired absence of both cervix and uterus; Z82.49 Family history of ischemic heart disease and other diseases of the circulatory system; Z91.14 Patient's other noncompliance with medication regimen
CPT/HCPCS: 99285; 96374; 36415 ×2; 84439; 83735; 84443; 85025 ×2; 81025; 80048; 80053; 81001; 84484 ×2; 80307; 87804; 83880; 70450; 93005 ×2; 93010; G0378 ×3; J1885

== ENCOUNTER → 2017-10-31 | Outpatient (CLI) | payer OTHER ==
--- NOTE | 2017-10-31 12:39 | RADIOLOGY REPORT (SQ) ---
EXAM DESCRIPTION: MRI CERVICAL SPINE WITHOUT COMPLETED DATE/TIME: 10/31/2017 12:26 pm REASON FOR STUDY: RADICULOPATHY, CERVICAL REGION M54.12 RADICULOPATHY, CERVICAL REGION COMPARISON: MRI cervical spine 08/05/2014 TECHNIQUE: Sagittal and Axial imaging includes T1, T2, STIR and gradient echo sequences. LIMITATIONS: None. FINDINGS: ALIGNMENT: Reversal of cervical curvature likely due to muscle spasm VERTEBRAE: Intact. BONE MARROW: Decreased red marrow fatty content could be seen in chronic anemia or heavy smoking. Th is is similar compared to 08/05/2014 MRI cervical spine DISCS: Disc space loss of height at C5-6. Diffuse decreased T2 weighted intervertebral disc signal. HARDWARE: None in the spine. CORD AND BASE OF BRAIN: Normal in size and signal intensity. SOFT TISSUES: No soft tissue masses. C1-C2: No significant spinal stenosis. C2-C3: No significant spinal stenosis or exit foraminal stenosis. C3-C4: Minimal posterior disc bulging is present without significant central or foraminal encroachmen t. C4-C5: Minimal posterior disc bulging is present without significant central or foraminal encroachmen t. C5-C6: Broad diffuse posterior disc bulging is present with a moderate-sized left paracentral and pro ximal foraminal disc protrusion with calcified bony spur. There is adjacent reactive vertebral body endplate changes along the bone spur. High-grade left C5-6 foraminal stenosis. This is unchanged fr om 08/05/2014. Elsewhere at C5-6, broad diffuse posterior disc bulging partially effaces the ventral thecal sac and abuts the ventral cord without cord flattening or abnormal intrinsic cord signal. Borderline central canal narrowing. No right foraminal stenosis. C6-C7: Mild diffuse posterior disc bulging is present without central stenosis. Mild bilateral jaden inal narrowing from facet and uncovertebral hypertrophy. C7-T1: No significant spinal stenosis or exit foraminal stenosis. UPPER THORACIC: Incompletely imaged. No significant spinal stenosis or exit foraminal stenosis. OTHER: No other significant finding. IMPRESSION: Moderate size left paracentral and proximal foraminal disc protrusion and bony spurring at that C5-6 level with high-grade left C5-6 foraminal narrowing. This is similar compared to 2014. TECHNICAL DOCUMENTATION: JOB ID: [id number] [employer]- All Rights Reserved Reading location - IP/workstation name: [email or web address]
== END ==
LOC: RAD 11:51
PROVIDERS: ATTEND Internal Medicine
DX: M54.12 Radiculopathy, cervical region (principal)
CPT/HCPCS: 72141

== ENCOUNTER 2017-11-11 19:10 | Inpatient (IN) | payer OTHER ==
[2017-11-11] MEDS ORDERED: ASPIRIN 81 MG TABLET, CHEWABLE PO ONE (19:37)
--- NOTE | 2017-11-11 19:42 | ER Document Report ---
ED General - General Chief Complaint: Chest Pain Stated Complaint: CHEST PAIN Time Seen by Provider: 11/11/17 19:31 Mode of Arrival: Ambulatory Information source: Patient Notes: 47-year-old female presents to the emergency department with complaints of left- sided chest pressure that radiates into her left neck and left shoulder. Patient states that this started about 30 minutes prior to arrival. She denies any alleviating factors. She did not take any aspirin prior to coming to the emergency department. Patient denies ever having a similar type of pain. She does have a history of hypertension but denies any diabetes, hyperlipidemia, family history of coronary artery disease, history of coronary artery disease in herself. She does smoke. Patient is having associated diaphoresis and nausea. TRAVEL OUTSIDE OF THE [place] IN LAST 30 DAYS: No - HPI Onset: Just prior to arrival Onset/Duration: Sudden Quality of pain: Pressure Severity: Moderate Associated symptoms: Nausea, Sweating Exacerbated by: Denies Relieved by: Denies Similar symptoms previously: No Recently seen / treated by doctor: No - Related Data Allergies/Adverse Reactions: codeine [Codeine] Allergy (Severe, Verified 11/11/17 19:11) rash Past Medical History - Social History Smoking Status: Current Every Day Smoker Family History: DM, Hypertension - Past Medical History Cardiac Medical History: Reports: Hx Hypertension Denies: Hx Coronary Artery Disease, Hx Heart Attack Pulmonary Medical History: Denies: Hx Asthma, Hx Bronchitis, Hx COPD, Hx Pneumonia Neurological Medical History: Denies: Hx Cerebrovascular Accident, Hx Seizures Renal/ Medical History: Denies: Hx Peritoneal Dialysis GI Medical History: Musculoskeletal Medical History: Denies Hx Arthritis Infectious Medical History: Past Surgical History: Reports: Hx Section, Hx Hysterectomy. Denies: Hx Pacemaker - Immunizations Hx Diphtheria, Pertussis, Tetanus Vaccination: Yes Review of Systems - Review of Systems Constitutional: No symptoms reported EENT: No symptoms reported Cardiovascular: Chest pain Respiratory: No symptoms reported Gastrointestinal: Nausea Genitourinary: No symptoms reported Female Genitourinary: No symptoms reported Musculoskeletal: No symptoms reported Skin: No symptoms reported Hematologic/Lymphatic: No symptoms reported Neurological/Psychological: No symptoms reported -: Yes All other systems reviewed and negative Physical Exam - Vital signs Vitals: Temp Pulse Resp BP Pulse Ox 97.9 F 109 H 20 156/97 H 97 11/11/17 19:26 11/11/17 19:26 11/11/17 19:26 11/11/17 19:26 11/11/17 19:26 Interpretation: Normal, Tachycardic - Notes Notes: PHYSICAL EXAMINATION: GENERAL: Diaphoretic. HEAD: Atraumatic, normocephalic. EYES: Pupils equal round and reactive to light, extraocular movements intact, conjunctiva are normal. ENT: Nares patent, oropharynx clear without exudates. Moist mucous membranes. NECK: Normal range of motion, supple without lymphadenopathy LUNGS: Breath sounds clear to auscultation bilaterally and equal. No wheezes rales or rhonchi. HEART: Regular rate and rhythm without murmurs ABDOMEN: Soft, nontender, nondistended abdomen. No guarding, no rebound. No masses appreciated. Female : deferred Musculoskeletal: Normal range of motion, no pitting or edema. No cyanosis. NEUROLOGICAL: Cranial nerves grossly intact. Normal speech, normal gait. Normal sensory, motor exams PSYCH: Normal mood, normal affect. SKIN: Warm, Dry, normal turgor, no rashes or lesions noted. Course - Re-evaluation Re-evalutation: 11/11/17 21:26 Labs and imaging obtained. Troponin is normal. Repeat EKGs were done. No ST segment elevation appreciated. Patient given aspirin and nitro while in the emergency department. On reevaluation, patient states that now her chest pain is a 1 out of 10. She states that she is feeling much better. Patient has a heart score of 6. I contacted the patient's primary care physician, Dr. Herrera. He is agreeable with admitting the patient for cardiac rule out. Patient is currently stable in the emergency department. - Vital Signs Vital signs: Temp Pulse Resp BP Pulse Ox 97.9 F 109 H 22 H 145/101 H 96 11/11/17 19:26 11/11/17 19:26 11/11/17 21:01 11/11/17 21:01 11/11/17 21:01 - Laboratory Result Diagrams: 11/11/17 19:47 11/11/17 19:47 Laboratory results interpreted by me: 11/11/17 11/11/17 19:47 19:47 WBC 12.2 H Hgb 15.9 H Est GFR ( Amer) 58 L Est GFR (Non-Af Amer) 48 L Direct Bilirubin 0.5 H - EKG Interpretation by Me Additional EKG results interpreted by me: 11/11/17 20:43 EKG: Ventricular rate 112, p.o. interval 144, castration 92, QTc 481, sinus tachycardia, ST segment depression in leads I, 2, 3, aVF, V4, V5, V6 EKG #2, ventricular rate 105, NE interval 152, castration 86, QTc 503, sinus tachycardia, ST segment depression in leads I, 2, aVF, V4, V5, V6 Discharge - Discharge Clinical Impression: Chest pain Qualifiers: Chest pain type: unspecified Qualified Code(s): R07.9 - Chest pain, unspecified Condition: Stable Disposition: ADMITTED OBSERVATION Admitting Provider: Angle Unit Admitted: Telemetry Referrals: AMAYA HERRERA MD [Primary Care Provider] - Follow up as needed
--- NOTE | 2017-11-11 19:44 | EKG REPORT ---
SEVERITY:- ABNORMAL ECG - SINUS TACHYCARDIA PROBABLE LVH WITH SECONDARY REPOL ABNRM : Confirmed by: Carlyn Stubbs MD 11-Nov-2017 19:43:32
[2017-11-11 20:02] LABS: ABSOLUTE BASOPHILS # (AUTO) 0.1 10^3/uL (0.0-0.2); ABSOLUTE EOSINOPHILS # (AUTO) 0.3 10^3/uL (0.0-0.6); ABSOLUTE LYMPHOCYTES (AUTO) 2.8 10^3/uL (0.5-4.7); ABSOLUTE NEUT (AUTO) 7.9 10^3/uL (1.7-8.2); EOSINOPHILS % (AUTO) 2.4 % (0-6); HEMATOCRIT 46.2 % (36.0-47.0); HEMOGLOBIN 15.9 g/dL (12.0-15.5); LYMPHOCYTES % (AUTO) 23.3 % (13-45); MEAN CORPUSCULAR HEMOGLOBIN 30.1 pg (27.0-33.4); MEAN CORPUSCULAR HGB CONC 34.4 g/dL (32.0-36.0); MEAN CORPUSCULAR VOLUME 88 fl (80-97); MONOCYTES % (AUTO) 8.2 % (3-13); PLATELET COUNT 340 10^3/uL (150-450); RED BLOOD COUNT 5.27 10^6/uL (3.72-5.28); RED CELL DISTRIBUTION WIDTH 13.3 % (11.5-14.0); SEGMENTED NEUTROPHILS % (AUTO) 65.1 % (42-78); TOTAL CELLS COUNTED % (AUTO) 100 %; WHITE BLOOD COUNT 12.2 10^3/uL (4.0-10.5)
[2017-11-11 20:12] LABS: ALANINE AMINOTRANSFERASE 34 U/L (9-52); ALBUMIN 4.3 g/dL (3.5-5.0); ALKALINE PHOSPHATASE 110 U/L (38-126); ANION GAP 14 (5-19); ASPARTATE AMINO TRANSFERASE 28 U/L (14-36); BILIRUBIN,DIRECT 0.5 mg/dL (0.0-0.4); BILIRUBIN,TOTAL 0.5 mg/dL (0.2-1.3); BLOOD UREA NITROGEN 18 mg/dL (7-20); CALCIUM 9.6 mg/dL (8.4-10.2); CARBON DIOXIDE 27 mmol/L (22-30); CHLORIDE 101 mmol/L (98-107); CREATINE KINASE 55 U/L (30-135); GLUCOSE 84 mg/dL (75-110); POTASSIUM 3.9 mmol/L (3.6-5.0); SODIUM 142.4 mmol/L (137-145)
--- NOTE | 2017-11-11 20:13 | RADIOLOGY REPORT (SQ) ---
EXAM DESCRIPTION: CHEST SINGLE VIEW COMPLETED DATE/TIME: 11/11/2017 7:51 pm REASON FOR STUDY: chest pain COMPARISON: 11/08/2011 EXAM PARAMETERS: NUMBER OF VIEWS: One view. TECHNIQUE: Single frontal radiographic view of the chest acquired. RADIATION DOSE: NA LIMITATIONS: None. FINDINGS: LUNGS AND PLEURA: No acute opacities, masses or pneumothorax. No pleural effusion. MEDIASTINUM AND HILAR STRUCTURES: No masses. Contour normal. HEART AND VASCULAR STRUCTURES: Heart normal in size. Normal vasculature. BONES: No acute findings. HARDWARE: None in the chest. OTHER: No other significant finding. IMPRESSION: NO ACUTE RADIOGRAPHIC FINDING IN THE CHEST. TECHNICAL DOCUMENTATION: JOB ID: [id number] 2010 [employer]- All Rights Reserved Reading location - IP/workstation name: [email or web address]
[2017-11-11 20:21] LABS: CREATINE KINASE MB 0.44 ng/mL (<4.55)
[2017-11-11 20:36] LABS: TROPONIN I 0.015 ng/mL
[2017-11-11] MEDS: NITROGLYCERIN 0.4 MG/TAB 25 TAB/BOTTLE SL PRN (21:25)
--- NOTE | 2017-11-11 23:25 | EKG REPORT ---
SEVERITY:- DEFECTIVE ECG - SINUS RHYTHM CONSIDER RVH OR POSTERIOR INFARCT PROBABLE LVH WITH SECONDARY REPOL ABNRM V LEADS INTERCHANGED.REPEAT EKG : Confirmed by: Carlyn Stubbs MD 11-Nov-2017 23:24:29
--- NOTE | 2017-11-11 23:25 | EKG REPORT ---
SEVERITY:- ABNORMAL ECG - SINUS RHYTHM PROBABLE LEFT ATRIAL ABNORMALITY PROBABLE LVH WITH SECONDARY REPOL ABNRM BORDERLINE PROLONGED QT INTERVAL : Confirmed by: Carlyn Stubbs MD 11-Nov-2017 23:24:37
--- NOTE | 2017-11-11 23:25 | EKG REPORT ---
SEVERITY:- ABNORMAL ECG - SINUS RHYTHM PROBABLE LEFT ATRIAL ABNORMALITY LVH WITH SECONDARY REPOLARIZATION ABNORMALITY : Confirmed by: Carlyn Stubbs MD 11-Nov-2017 23:24:42
--- NOTE | 2017-11-11 23:25 | EKG REPORT ---
SEVERITY:- ABNORMAL ECG - SINUS TACHYCARDIA PROBABLE LVH WITH SECONDARY REPOL ABNRM BORDERLINE PROLONGED QT INTERVAL : Confirmed by: Calryn Stubbs MD 11-Nov-2017 23:24:48
[2017-11-12 02:41] LABS: CREATINE KINASE MB 0.61 ng/mL (<4.55); TROPONIN I 0.023 ng/mL
[2017-11-12] MEDS: NITROGLYCERIN 0.4 MG/TAB 25 TAB/BOTTLE SL PRN (06:44)
[2017-11-12] MEDS ORDERED: NITROGLYCERIN/D5W 50 MG/250 ML RTUINJ IV ONE (06:56)
[2017-11-12] MEDS ORDERED: NITROGLYCERIN 50 MG/D5W 250 ML IV PRN (06:58)
--- NOTE | 2017-11-12 07:19 | EKG REPORT ---
SEVERITY:- ABNORMAL ECG - SINUS RHYTHM ABNORMAL T, CONSIDER ISCHEMIA, LATERAL LEADS BORDERLINE PROLONGED QT INTERVAL : Confirmed by: Carlyn Stubbs MD 12-Nov-2017 07:17:45
[2017-11-12 08:46] LABS: CREATINE KINASE MB 0.68 ng/mL (<4.55); TROPONIN I 0.016 ng/mL
[2017-11-12] MEDS: ASPIRIN 81 MG TABLET, ENT COATED PO SCH (09:28)
[2017-11-12] MEDS: LISINOPRIL 10 MG TABLET PO SCH (09:28)
[2017-11-12] MEDS ORDERED: LISINOPRIL 10 MG TABLET PO SCH (10:00)
[2017-11-12] MEDS ORDERED: METOPROLOL SUCCINATE 50 MG TAB.SR.24H PO SCH ×2 (10:00→22:00)
[2017-11-12] MEDS ORDERED: HYDROCHLOROTHIAZIDE 12.5 MG TABLET PO SCH (10:00)
[2017-11-12] MEDS ORDERED: HEPARIN SODIUM,PORCINE/D5W 25,000 UNIT/250 ML RTUINJ IV PRN (10:23)
[2017-11-12 10:36] LABS: ABSOLUTE BASOPHILS # (AUTO) 0.1 10^3/uL (0.0-0.2); ABSOLUTE EOSINOPHILS # (AUTO) 0.4 10^3/uL (0.0-0.6); ABSOLUTE LYMPHOCYTES (AUTO) 2.9 10^3/uL (0.5-4.7); ABSOLUTE NEUT (AUTO) 5.6 10^3/uL (1.7-8.2); EOSINOPHILS % (AUTO) 4.2 % (0-6); HEMATOCRIT 44.4 % (36.0-47.0); HEMOGLOBIN 15.3 g/dL (12.0-15.5); LYMPHOCYTES % (AUTO) 29.3 % (13-45); MEAN CORPUSCULAR HEMOGLOBIN 30.3 pg (27.0-33.4); MEAN CORPUSCULAR HGB CONC 34.4 g/dL (32.0-36.0); MEAN CORPUSCULAR VOLUME 88 fl (80-97); MONOCYTES % (AUTO) 9.6 % (3-13); PLATELET COUNT 329 10^3/uL (150-450); RED BLOOD COUNT 5.04 10^6/uL (3.72-5.28); RED CELL DISTRIBUTION WIDTH 13.3 % (11.5-14.0); SEGMENTED NEUTROPHILS % (AUTO) 55.9 % (42-78); TOTAL CELLS COUNTED % (AUTO) 100 %
[2017-11-12 10:42] LABS: INTERNATIONAL RATION (INR) 0.89; PROTHROMBIN TIME 12.5 SEC (11.4-15.4)
[2017-11-12 10:43] LABS: PARTIAL THROMBOPLASTIN TIME 37.1 SEC (23.5-35.8)
--- NOTE | 2017-11-12 12:10 | PDOC H&P ---
History of Present Illness Admission Date/PCP: 11/11/17 21:38 AMAYA HERRERA MD History of Present Illness: JENNIFER BENAVIDEZ I is a 47 year old female, obese patient with poorly controlled blood pressure, tobacco abuse, she came to the emergency room yesterday for evaluation of his new onset chest pain, described as sharp and pressure, left- sided provoked while driving a vehicle, the pain radiated to the left upper extremities, with numbness and tingling sensation, she said she never felt any chest pain like that before in her life, she was seen in the emergency room and evaluated, a 12-lead EKG was done, it was an sinus rhythm with ST segment depression in lateral leads suggesting ischemia. Patient's symptoms is very suspicious for anginal-like chest pain, she has risk factors for vascular disease including smoking, hypertension poorly controlled, sedentary lifestyle, morbid obesity. Past Medical History Cardiac Medical History: Reports: Hypertension Pulmonary Medical History: GI Medical History: Hematology: Past Surgical History Past Surgical History: Reports: Section, Hysterectomy Social History Smoking Status: Current Every Day Smoker Cigarettes Packs Per Day: 0.3 Frequency of Alcohol Use: Rare Hx Recreational Drug Use: No Drugs: None Hx Prescription Drug Abuse: No - Advance Directive Resuscitation Status: Full Code Family History Family History: DM, Hypertension Parental Family History Reviewed: Yes Children Family History Reviewed: Yes Sibling(s) Family History Reviewed.: Yes Medication/Allergy Home Medications: Lisinopril/Hydrochlorothiazide [Lisinopril-Hctz 20-12.5 mg Tab] 1 tab PO DAILY 11/11/17 Metoprolol Succinate [Toprol XL 100 mg Tablet] 100 mg PO DAILY 11/11/17 Allergies/Adverse Reactions: codeine [Codeine] Allergy (Severe, Verified 11/11/17 19:11) rash Review of Systems Eyes: ABSENT: visual disturbances Ears: ABSENT: hearing changes Cardiovascular: PRESENT: chest pain Respiratory: ABSENT: cough, hemoptysis Gastrointestinal: ABSENT: abdominal pain, constipation, diarrhea, hematemesis, hematochezia, nausea, vomiting Genitourinary: ABSENT: dysuria, hematuria Musculoskeletal: ABSENT: joint swelling Integumentary: ABSENT: rash, wounds Neurological: ABSENT: abnormal gait, abnormal speech, confusion, dizziness, focal weakness, syncope Psychiatric: ABSENT: anxiety, depression, homidical ideation, suicidal ideation Endocrine: ABSENT: cold intolerance, heat intolerance, menstrual abnormalities, polydipsia, polyuria Hematologic/Lymphatic: ABSENT: easy bleeding, easy bruising, lymphadenopathy Physical Exam Vital Signs: Temp Pulse Resp BP Pulse Ox 97.8 F 72 16 143/83 H 100 11/12/17 07:47 11/12/17 07:47 11/12/17 07:47 11/12/17 07:47 11/12/17 07:47 Intake & Output 11/11/17 11/12/17 11/13/17 06:59 06:59 06:59 Intake Total 205 Balance 205 Weight 106.5 kg General appearance: PRESENT: no acute distress, well-developed, well-nourished Head exam: PRESENT: atraumatic, normocephalic Eye exam: PRESENT: conjunctiva pink, EOMI, PERRLA Ear exam: PRESENT: normal external ear exam Mouth exam: PRESENT: moist, tongue midline Neck exam: PRESENT: full ROM Respiratory exam: PRESENT: clear to auscultation renan Cardiovascular exam: PRESENT: RRR, +S1, +S2 Pulses: PRESENT: normal dorsalis pedis pul, +2 pedal pulses bilateral Vascular exam: PRESENT: normal capillary refill GI/Abdominal exam: PRESENT: normal bowel sounds, soft Rectal exam: PRESENT: deferred Neurological exam: PRESENT: alert, awake, oriented to person, oriented to place , oriented to time, oriented to situation, CN II-XII grossly intact Psychiatric exam: PRESENT: appropriate affect, normal mood Skin exam: PRESENT: dry, intact, warm Results Laboratory Results: 11/12/17 07:38 11/12/17 07:38 WBC 10.0 RBC 5.04 Hgb 15.3 Hct 44.4 MCV 88 MCH 30.3 MCHC 34.4 RDW 13.3 Plt Count 329 Seg Neutrophils % 55.9 Lymphocytes % 29.3 Monocytes % 9.6 Eosinophils % 4.2 Basophils % 1.0 Absolute Neutrophils 5.6 Absolute Lymphocytes 2.9 Absolute Monocytes 1.0 Absolute Eosinophils 0.4 Absolute Basophils 0.1 11/12/17 11/12/17 11/12/17 01:59 01:59 07:38 Creatine Kinase 48 CK-MB (CK-2) 0.61 0.68 Troponin I 0.023 0.016 Impressions: Chest X-Ray 11/11/17 19:37 IMPRESSION: NO ACUTE RADIOGRAPHIC FINDING IN THE CHEST. Assessment & Plan - Diagnosis (1) Unstable angina Is this a current diagnosis for this admission?: Yes Plan: She has unstable angina by definition, she had a new onset anginal-like chest pain, ST depression in lateral leads, indeterminate troponin, start nitro drip start IV atropine, antiplatelet
[2017-11-12] MEDS ORDERED: CLOPIDOGREL BISULFATE 75 MG TABLET PO SCH (12:15)
[2017-11-12] MEDS ORDERED: HEPARIN SOD (PORCINE) 1,000 UNIT/ML 10 ML VIAL IV PRN (13:24)
[2017-11-12] MEDS ORDERED: CLOPIDOGREL BISULFATE 300 MG TABLET PO ONE (13:30)
[2017-11-12 14:57] LABS: CREATINE KINASE MB 0.75 ng/mL (<4.55)
[2017-11-12 15:00] LABS: TROPONIN I < 0.012 ng/mL
[2017-11-12] MEDS ORDERED: NITROGLYCERIN 2% OINTMENT 1 GM PACKET TP ONE (18:26)
[2017-11-12 23:02] LABS: APPEARANCE,URINE SLIGHTLY-CLOUDY; BILIRUBIN,URINE NEGATIVE (NEGATIVE); COLOR,URINE YELLOW; GLUCOSE, URINE 50 mg/dL (NEGATIVE); KETONES,URINE NEGATIVE (NEGATIVE); LEUKOCYTE ESTERASE,URINE NEGATIVE (NEGATIVE); NITRITE,URINE NEGATIVE (NEGATIVE); PROTEIN,URINE NEGATIVE (NEGATIVE); URINE SPECIFIC GRAVITY 1.018; UROBILINOGEN,URINE NEGATIVE mg/dL (<2.0)
--- NOTE | 2017-11-13 04:16 | CONSULTATION REPORT E ---
Consultation Report NAME: JENNIFER BENAVIDEZ : 1970 AGE: 47Y DATE: 11/12/2017 323 A TO: JENNIFER FELICIANO M.D. FROM: AMAYA HERRERA M.D. Requesting Physician The patient was seen at 3 p.m. on 11/12/2017. REASON FOR CONSULTATION: Patient with chest pressure/pain in a patient with multiple risk factors for coronary artery disease. HISTORY OF PRESENT ILLNESS: The patient is a 47-year-old smoker with a history of hypertension, tobacco abuse disorder, and moderate obesity, who states that when she was driving her car, she had sharp pains lasting for a few seconds in the left front of the chest with radiation to the left arm and shoulder with numbness and tingling. These lasted only for a few seconds and would recur. She also states there was another type of chest pressure in the front of the chest with shortness of breath, which lasted for a few hours and finally 4-5 minutes after a sublingual nitroglycerin in the ER, the chest pressure subsided. She states that when she had this, when she walked around, the chest pressure seemed to increase. She denies any palpitations or syncope. There is no leg edema. There is no PND or orthopnea. There is no cough or wheezing. There are no TIA or CVA symptoms. There is no dizziness or syncope or near syncope. PAST MEDICAL HISTORY: 1. Positive for history of hypertension. 2. No history of coronary artery disease. The patient states she has never had chest symptoms like this before. 3. No history of palpitations. 4. No history of bradycardia. 5. No history of congestive heart failure. 6. No history of PND, orthopnea or syncope. 7. No history of diabetes mellitus. 8. History of hypertension, claims is well controlled. 9. Although she has no COPD, asthma or sleep apnea, she does smoke. 10. No history of thyroid disease. 11. No history of CVA or TIA. 12. No history of chronic kidney disease, but in May of 2014, her GFR was 59 and now it has come down to 48 mL/min. Hence, the patient does have some element of chronic kidney disease. PAST SURGICAL HISTORY: Positive for: 1. . 2. Hysterectomy. SOCIAL HISTORY: The patient is a smoker. There is ETOH or drug abuse. FAMILY HISTORY: Positive for coronary artery disease in her mother, who the patient states had a myocardial infarction. ADVANCE DIRECTIVES: The patient is a FULL CODE. She states her daughter is her surrogate healthcare decision-maker. ALLERGIES: CODEINE. MEDICATIONS: 1. Heparin drip adjusted according to the PTT. 2. Aspirin 81 mg p.o. daily. 3. Plavix 300 mg x1 and 75 mg p.o. daily. 5. Hydrochlorothiazide 12.5 mg p.o. daily. 6. Lisinopril 20 mg p.o. daily. 7. Metoprolol succinate (Toprol XL) 100 mg at bedtime. 8. Nitroglycerin drip at 10 mcg/min. REVIEW OF SYSTEMS: CONSTITUTIONAL: Denies any fever, chills, or rigors. Complains of generalized fatigue and weakness. HEAD: Denies headaches or head injury. EYES: No history of amblyopia or diplopia. No history of amaurosis fugax. EARS: No history of hearing loss. No history of tinnitus. No history of recurrent ear infections. NOSE: No history of nasal polyps. No history of nosebleeds. No history of hay fever. MOUTH: No altered taste sensation. No ulcers in the mouth. No bleeding from the gums. THROAT: No odynophagia or dysphagia. No recurrent sore throats. SKIN: No history of pruritus. No history of eczema or psoriasis. No yellowish discoloration of the skin. NECK: Denies any neck pain. No neck lymph nodes. No goiter. LUNGS: No history of asthma or COPD. No history of sleep apnea. No history of pulmonary embolism. No history of wheezing. No history of cough or pleuritic chest pain, except for the sharp pains that she had in the front of the chest lasting a few seconds at a time, but this was not related to her breathing. There is no history of pulmonary embolism. No history of hemoptysis. No recent symptoms of upper or lower respiratory tract infection. CARDIAC: History of hypertension present. No history of prior OR or anginal symptoms. This is the first time the patient has had any chest pressure. There is no history of coronary artery disease or rheumatic fever. No history of PND, orthopnea, leg edema, palpitations, syncope or near syncope. No history of atrial fibrillation or other cardiac arrhythmia. No history of congestive heart failure. RENAL: The patient does have an element of chronic kidney disease. The renal function may have worsened because the patient is hydrochlorothiazide. There are no symptoms of UTI. No history of hematuria, dysuria, pyuria or dysuria. ENDOCRINE: No history of diabetes mellitus or thyroid disease. No history of polydipsia or polyuria. No history of heat or cold intolerance. No history of hirsutism. No history of excessive sweating. METABOLIC: Denies history of gout or hyperlipidemia. The patient does have moderate obesity. MUSCULOSKELETAL: Denies any arthritis or collagen vascular disease. CENTRAL NERVOUS SYSTEM: No history of TIA or CVA. No history of headaches, migraines, or seizures. No history of gait imbalance. PSYCHIATRIC: No history of anxiety or depression. No history of suicidal ideation. No history of homicidal ideation. GASTROINTESTINAL: No history of GERD. No history of peptic ulcer disease. No history of GI bleed. No fatty food intolerance. No history of abdominal pain. No cirrhosis or jaundice. VASCULAR: No history of calf or buttock claudication. No DVT. HEMATOLOGIC: No history of bleeding diathesis, no history of clotting disorder. PHYSICAL EXAMINATION: GENERAL: On examination the patient is moderately obese, but well-groomed, in no acute distress. VITAL SIGNS: She is afebrile with a temperature of 98.3 degrees Fahrenheit, pulse 74 beats per minute, blood pressure 137/85, respirations 16 per minute, O2 saturations 97% on room air. HEENT: Head is atraumatic, normocephalic. Eyes: Pupils are equal, round and regular, reactive to light and accommodation. Extraocular movements are normal. There is no conjunctival pallor. There is no scleral icterus. Ears: Tympanic membranes are intact, external auditory canals are clear. Nose: There is no deviated nasal septum. There is no inflammation of the nasal mucous membrane. Mouth: Mucous membranes of the mouth are moist. Tongue is moist. There are no ulcers. There is no bleeding from the gums. Throat: There is no redness of the oropharynx. There are no exudates. SKIN: There is no skin rashes. There are no skin lesions. There is no petechiae or ecchymosis. NECK: Supple. There is no JVD. There is no lymphadenopathy. There is no goiter. Carotids are equal. There are no bruits. Trachea is central. LUNGS: Clear to auscultation and percussion without any rhonchi, rales, or wheezing. There is no chest wall tenderness. HEART: S1, S2 is heard. There is no S3 gallop. There is no S4 gallop. There is a systolic murmur in the left sternal border and the apex. There is no rub. There is no murmur of aortic stenosis or aortic regurgitation. There is murmur of mild mitral regurgitation present. ABDOMEN: Soft, obese, nontender. There is no hepatosplenomegaly. Bowel sounds are well heard. There are no tender areas or masses. EXTREMITIES: Femorals are diminished bilaterally, femorals are deep. There are no femoral bruits. Leg pulses are diminished. There is no pedal edema. There is no cyanosis or clubbing. There is no DVT or cellulitis. Capillary refill is normal. There is no calf tenderness. CENTRAL NERVOUS SYSTEM: The patient is conscious, awake, alert and oriented x3 with no focal deficits. PSYCHIATRIC: The patient+s judgment and insight are intact. Her affect is normal. DIAGNOSTICS: EKG: The patient has sinus tachycardia. Probable LVH with secondary repolarization changes. The patient's other EKG have been reviewed. The patient's EKG today shows T inversion in lateral leads, cannot exclude ischemia. Borderline prolonged QT interval. The T inversion seems to be new compared to prior EKG done this admission. Chest x-ray: Shows no acute radiographic findings in the chest. The patient's white count is 10,000, hemoglobin 15.3, hematocrit 44.4, platelet count 329,000. The patient's ProTime is 12.5, INR 0.89 and PTT 37.4. Subsequently, 34.6. Note, the patient is on a heparin drip. Sodium 142, potassium 3.9, chloride 101, CO2 27, BUN 18, creatinine 1.21. GFR is 48, which is chronic kidney disease stage 3, but there may be an acute element. Glucose 84, calcium 9.6. Liver function tests normal except for slightly elevated direct bilirubin of 0.5. The patient's total protein is 8, albumin 4.3. The patient's CPK-MB and troponin-I are serially negative x4. IMPRESSION: 1. Chest tightness/pressure/chest pain in a patient with multiple coronary artery disease risk factors. No evidence of myocardial infarction. The patient also has an abnormal EKG. 2. Abnormal electrocardiogram. 3. Hypertension. 4. Chronic kidney disease, stage 3, but I suspect a prerenal element and stopped the patient's hydrochlorothiazide. 5. Obesity. 6. Tobacco abuse. 7. Systolic murmur of mitral regurgitation, question significance. RECOMMENDATIONS: We will stop the patient's heparin drip. We will stop the patient's IV nitroglycerin drip. Place the patient on topical nitrate 1 gram on chest wall. Continue patient's metoprolol and aspirin. Continue Plavix. Note, we will stop the hydrochlorothiazide. We will check the patient's lipid panel and schedule the patient for IV Lexiscan Cardiolite stress test in the a.m. This has been discussed with the patient and the patient's family and also with Dr. *------*. Since the patient's mother was my patient, the patient is desirous of following up with me. All questions answered. Note, medical decision-making was of high complexity. The medications have been reviewed and medications adjusted. Note, 60 minutes spent on the patient with more than 50% of the time spent on direct patient care. We will follow with you. Thanking you. DICTATING PHYSICIAN: JENNIFER FELICIANO M.D. DICTATING PHYSICIAN: JENNIFER FELICIANO M.D. [id number] PHY#: [id number] ID: [id number] JOB#: [id number] ACCT: [id number] cc:JENNIFER FELICIANO M.D. >
[2017-11-13 06:19] LABS: CHOLESTEROL 167.77 mg/dL (0-200); TRIGLYCERIDES 226 mg/dL (<150)
[2017-11-13 06:30] LABS: DIRECT LDL 91 mg/dL (<100)
[2017-11-13 06:45] LABS: VLDL CHOLESTEROL 45.2 mg/dL (10-31)
[2017-11-13] MEDS: ASPIRIN 81 MG TABLET, ENT COATED PO SCH (09:46)
[2017-11-13] MEDS ORDERED: CLOPIDOGREL BISULFATE 75 MG TABLET PO SCH (10:00)
[2017-11-13] MEDS: LISINOPRIL 10 MG TABLET PO SCH (12:44)
[2017-11-13] MEDS ORDERED: REGADENOSON INJ 0.4 MG/5 ML DISP.SYRIN IV ONE (12:56)
--- NOTE | 2017-11-13 15:14 | PDOC DISCHARGE SUMMARY ---
General - Admit/Disc Date/PCP Admission Date/Primary Care Provider: 11/11/17 21:38 AMAYA HERRERA MD Discharge Date: 11/13/17 - Discharge Diagnosis (1) Unstable angina Is this a current diagnosis for this admission?: Yes - Additional Information Resuscitation Status: Full Code Home Medications: Lisinopril/Hydrochlorothiazide [Lisinopril-Hctz 20-12.5 mg Tab] 1 tab PO DAILY 11/11/17 Metoprolol Succinate [Toprol XL 100 mg Tablet] 100 mg PO DAILY 11/11/17 History of Present Illness History of Present Illness: JENNIFER BENAVIDEZ I is a 47 year old female, obese patient with poorly controlled blood pressure, tobacco abuse, she came to the emergency room yesterday for evaluation of his new onset chest pain, described as sharp and pressure, left- sided provoked while driving a vehicle, the pain radiated to the left upper extremities, with numbness and tingling sensation, she said she never felt any chest pain like that before in her life, she was seen in the emergency room and evaluated, a 12-lead EKG was done, it was an sinus rhythm with ST segment depression in lateral leads suggesting ischemia. Patient's symptoms is very suspicious for anginal-like chest pain, she has risk factors for vascular disease including smoking, hypertension poorly controlled, sedentary lifestyle, morbid obesity. Hospital Course Hospital Course: Patient was admitted for the management of chest pain that was suspicious for unstable angina, 3 sets of cardiac enzymes negative for acute PR. She was treated with IV anticoagulant heparin, IV nitroglycerin infusion, she was seen in consultation by Dr. Stubbs cardiology. She underwent stress test, Cardiolite Lexiscan stress test today, it was negative for any reversibility to suggest ischemia. She be discharged home today to continue all meds reduce risk factors, exercise ,and lose weight. stop Smoking Physical Exam Vital Signs: Temp Pulse Resp BP Pulse Ox 97.9 F 52 L 16 117/86 H 96 11/13/17 07:47 11/13/17 07:47 11/13/17 07:47 11/13/17 07:47 11/13/17 07:47 Intake & Output 11/12/17 11/13/17 11/14/17 06:59 06:59 06:59 Intake Total 205 2785 Output Total 500 Balance 205 2285 Weight 106.5 kg 112.3 kg General appearance: PRESENT: no acute distress, well-developed, well-nourished Head exam: PRESENT: atraumatic, normocephalic Eye exam: PRESENT: conjunctiva pink, EOMI, PERRLA Ear exam: PRESENT: normal external ear exam Mouth exam: PRESENT: moist, tongue midline Neck exam: PRESENT: full ROM Respiratory exam: PRESENT: clear to auscultation renan Cardiovascular exam: PRESENT: RRR, +S1, +S2 Pulses: PRESENT: normal dorsalis pedis pul, +2 pedal pulses bilateral Vascular exam: PRESENT: normal capillary refill GI/Abdominal exam: PRESENT: normal bowel sounds, soft Rectal exam: PRESENT: deferred Neurological exam: PRESENT: alert, awake, oriented to person, oriented to place , oriented to time, oriented to situation, CN II-XII grossly intact Psychiatric exam: PRESENT: appropriate affect, normal mood Skin exam: PRESENT: dry, intact, warm Results Laboratory Results: 11/12/17 07:38 11/12/17 11/13/17 22:30 05:41 Triglycerides 226 H Cholesterol 167.77 LDL Cholesterol Direct 91 VLDL Cholesterol 45.2 H HDL Cholesterol 43 Urine Color YELLOW Urine Appearance SLIGHTLY-CLOUDY Urine pH 5.0 Ur Specific [place] 1.018 Urine Protein NEGATIVE Urine Glucose (UA) 50 H Urine Ketones NEGATIVE Urine Blood NEGATIVE Urine Nitrite NEGATIVE Ur Leukocyte Esterase NEGATIVE Urine WBC (Auto) 0 Urine RBC (Auto) 1 11/12/17 11/12/17 11/12/17 01:59 01:59 07:38 Creatine Kinase 48 CK-MB (CK-2) 0.61 0.68 Troponin I 0.023 0.016 11/12/17 14:17 Creatine Kinase CK-MB (CK-2) 0.75 Troponin I < 0.012 Impressions: Chest X-Ray 11/11/17 19:37 IMPRESSION: NO ACUTE RADIOGRAPHIC FINDING IN THE CHEST. Qualifiers - * PATIENT BEING DISCHARGED WITH ANY OF THE FOLLOWING DIAGNOSIS: No
[2017-11-13 15:35] VITALS: BP 151/88
--- NOTE | 2017-11-13 15:35 | PROGRESS NOTE E ---
Progress Note NAME: JENNIFER BENAVIDEZ : 1970 AGE: 47Y DATE: 11/13/2017 ROOM: 323 SUBJECTIVE: Note that the patient was seen prior to her stress testing and also after stress testing. The patient denies any further chest pain or discomfort. There is no PND, orthopnea or leg edema. There are no palpitations, syncope or near-syncope. There are no TIA or CVA symptoms. On the monitor, there is no arrhythmia seen. OBJECTIVE: GENERAL: The patient is moderate to severely obese, well-groomed, in no acute distress. VITAL SIGNS: She is afebrile, with a temperature of 97.9 degrees Fahrenheit. Her pulse is 52 beats per minute. Blood pressure of 117/86, respirations 16 per minute. O2 sats are 96% on room air. HEENT: Head is atraumatic, normocephalic. Eyes: Pupils are equal, round, regular, reactive to light and accommodation. Extraocular movements are normal. There is no conjunctival pallor. There is no scleral icterus. ENT is negative. NECK: Supple. There is no JVD. Carotids are equal. There is no bruit. There is no lymphadenopathy. There is no goiter. There is no JVD. Trachea is central. LUNGS: Clear to auscultation and percussion, without any rhonchi, rales or wheezing. HEART: S1, S2 are heard. There is no S3 gallop. There is no S4 gallop. There is a systolic murmur at the left sternal border, at the apex. There is no rub. There is no murmur of aortic regurgitation or aortic stenosis. ABDOMEN: Soft, nontender. There is no hepatosplenomegaly. Bowel sounds are well-heard. There are no tender areas or masses. EXTREMITIES: Femorals are diminished. Leg pulses diminished. There is no pedal edema. There are no femoral bruits. There is no cyanosis or clubbing. There is no DVT or cellulitis. There is no calf tenderness. MINE DEPUTY: The patient is conscious, awake, alert, oriented x3, with no focal deficits. PSYCHIATRIC: Patient's judgment and insight are intact. Her affect is normal. DIAGNOSTICS: The patient underwent IV Lexiscan Cardiolite stress test this morning, which showed no reversible ischemia, and there is no scar or GA. The patient's triglycerides are 226. Her total cholesterol is 167, her LDL cholesterol is 91, and HDL cholesterol is 43. IMPRESSION: 1. CHEST TIGHTNESS/PRESSURE, RESOLVED NOW. No evidence of GA. Negative Lexiscan Cardiolite stress test. 2. ABNORMAL EKG. 3. HYPERTENSION. 4. CHRONIC KIDNEY DISEASE, STAGE 3. 5. OBESITY. 6. TOBACCO ABUSE. 7. SYSTOLIC MURMUR. RECOMMENDATIONS: Note, the patient is off the heparin drip. I will continue the patient's current medications, including Plavix, aspirin, lisinopril and metoprolol extended release and sublingual nitroglycerin p.r.n. Note, the patient's medications have been reviewed. Would recommend discharging the patient home on a nitro patch. Tobacco abuse counseling given to the patient. Dispensed treatment for this. Medical decision making is of moderate to high complexity. Stress test results were discussed with her and attending physician. Will sign off the case and follow the patient up in the office, since she wants her blood pressure to be treated by me. Note, 40 minutes spent on the patient, with more than 50% of the time spent on direct patient care. Thank you for allowing me to participate in the care of this patient. Will follow with you. DICTATING PHYSICIAN: JENNIFER FELICIANO M.D. [id number] JULIÁN#: [id number] ID: [id number] JOB#: [id number] ACCT: [id number] cc: >
--- NOTE | 2017-11-13 18:56 | DRAGON STRESS TEST REPORT ---
Intravenous Lexiscan Cardiolite stress test using single photon emmision computerized tomography. Date of procedure: 11/13/2017. Ordering Provider: Dr. Carlyn Stubbs. Primary CARE Physician: Dr. Barbour. Patient's status: In Patient. Indication: Chest pain. Coronary risk factors: Age, hypertension,, tobacco abuse disorder, and history of coronary artery disease in family. Resting EKG: Sinus Rhythm. T inversion in the lateral leads. Stress EKG: No changes of ischemia. The patient had no chest pain or discomfort, and there were no arrhythmias seen. Reason for termination: Protocol. Conclusions: Normal EKG and hemodynamic response to IV Lexiscan. Nuclear data: At rest the patient was given 14.26 millicuries of technetium 99m sestamibi injected intravenously. As per protocol rest non gated SPECT images were obtained. Subsequently the patient was given intravenous Lexiscan at a dose of 0.4 mg in 5 mL intravenously, followed by flush with normal saline. Subsequently the stress dose of 43.3 millicuries of technetium 99m sestamibi was injected intravenously. As per protocol stress gated images were obtained. Nuclear interpretation: Review of images showed that there was breast attenuation artifact of the anterior and lateral pearl. In spite of this all segments of the myocardium had normal perfusion at rest, and normal perfusion post stress with IV Lexiscan. All segments of the myocardium had normal motion, contraction, and thickening by gated study. T. I D. ratio was normal at 1.09. Computer read rest, and stress left ventricular ejection fraction were 54 %, and 53 %, respectively. Visually both the stress and rest ejection fractions were normal, and greater than 55%. Conclusion: 1. There is no scintigraphic evidence of Lexiscan induced myocardial ischemia. 2. There is no scintigraphic evidence of myocardial infarction/scar. Recommendations: Aggressive risk factor modification, and treating the underlying co- morbidities. MTDD
== END 2017-11-13 16:00 | disposition home or self-care (01) | DRG 311 ==
LOC: ER 19:10 → EH 21:38 → OBSVTOIN 22:04 → 3W 11-12 00:09
PROVIDERS: ADMIT Internal Medicine; ATTEND Internal Medicine
DX: I20.0 Unstable angina (principal); Z68.41 Body mass index [BMI] 40.0-44.9, adult; I12.9 Hypertensive chronic kidney disease with stage 1 through stage 4 chronic kidney disease, or unspecified chronic kidney disease; N18.3 Chronic kidney disease, stage 3 (moderate); R01.1 Cardiac murmur, unspecified; I34.0 Nonrheumatic mitral (valve) insufficiency; E66.01 Morbid (severe) obesity due to excess calories; F17.210 Nicotine dependence, cigarettes, uncomplicated
CPT/HCPCS: 36415; 71045; 78452; 80053; 80061; 81001; 82550; 82553; 84484; 85025; 85610; 85730; 93005; 93010; 93017; 99285; A9500; G0378; J1644; J2785; J3490